=== PATIENT | male | born 1940 | race Caucasian/White ===

== ENCOUNTER 2021-03-25 09:25 | Emergency (ER) | payer MEDICARE ==
[~2021-03-25] VITALS: Ht 175.3 cm; Wt 76.8 kg
--- NOTE | 2021-03-25 09:56 | PHYS DOC ---
General Adult EDM: Chief Complaint: ANIMAL BITE HPI: HPI: Patient is a 80-year-old male coming in for swelling and purulent discharge to right hand. 1.5 days ago he was bitten by his dog. He states he dropped a wrapper and was going to pick it up as his dog was going for it at the same time, accidently biting his right hand. Dog's vaccination, including rabies, are up-to-date. Patient last tetanus greater than 10 years ago. Denies any fevers, chills, night sweats or any other systemic complaints. Patient with a history of stage IV melanoma and is currently undergoing chemotherapy treatment with Keytruda. Denies any pain at this time. Patient is right-handed. Review of Systems: Review of Systems: All other systems within normal limits except for as noted in the HPI Current Medications: Current Meds: Current Medications Medications (Trade) Dose Ordered Sig/Ayah Start Time Stop Time Status Last Admin Dose Admin Diphtheria/ Pertussis/Tetanus Vacc (ADACEL TDap SYRINGE) 0.5 ml ONCE ONCE 03/25/21 10:00 03/25/21 10:01 UNV Allergies: Allergies: Allergies Coded Allergies Type Severity Reaction Last Updated Verified No Known Drug Allergies 03/25/21 No Physical Exam: PE: Constitutional: Well developed, well nourished, no acute distress, non-toxic appearance. [] HENT: Normocephalic, atraumatic, bilateral external ears normal, nose normal. [] Eyes: PERRLA, conjunctiva normal, no discharge. [] Neck: No rigidity, supple, no stridor. [] Cardiovascular: Regular rate and rhythm, brisk cap refill [] Lungs & Thorax: Non labored symmetric respirations, no tachypnea or respiratory distress [] Abdomen: Soft, nondistended. Skin: Warm, dry, no erythema, no rash. [] Back: Unremarkable Extremities: No deformities, range of motion grossly intact, no lower extremity edema. Right hand exam: Diffuse swelling of hand and fingers, limited range of motion secondary to pain, 2 cm laceration to base of middle finger, multiple punctate lesions around base of second and third finger. [] Neurologic: Alert and oriented X 3, no focal deficits noted. [] Psychologic: Affect normal, judgement normal, mood normal. [] EKG: EKG: [] Radiology/Procedures: Radiology/Procedures: EXAM: Right hand, 3 views. HISTORY: Dog bite. COMPARISON: None. FINDINGS: 3 views of the right hand are obtained. There is a comminuted fracture involving the fourth proximal phalanx with overlying soft tissue gas due to a penetrating injury. No foreign body is seen. There is triscaphe and first carpometacarpal joint space narrowing, subchondral sclerosis and spurring. There is also first interphalangeal joint and second distal interphalangeal joint spurring. There is mild wrist chondrocalcinosis. There are vascular calcifications IMPRESSION: 1. Comminuted fracture of the fourth proximal phalanx with associated soft tissue laceration. No foreign body is seen. 2. 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 Risk Scores: Score 0 - 3: 2.5% MACE over next 6 weeks - Discharge Home Score 4 - 6: 20.3% MACE over next 6 weeks - Admit for Clinical Observation Score 7 - 10: 72.7% MACE over next 6 weeks - Early Invasive Strategies Course & Med Decision Making: Course & Med Decision Making Pertinent Labs and Imaging studies reviewed. (See chart for details) Blood cultures taken prior to antibiotics, treated with Zosyn. Consult to [facility] for hand consult due to open fracture and immune compromised patient, Dr. Mistry will accept patient for evaluation in emergency department.. Tetanus updated in the emergency department. Patient stable to transfer POV with . Left peripheral IV wrapped with Coban prior to departure. Patient instructed to check into the emergency department. [] Dragon Disclaimer: Samantha Disclaimer: This electronic medical record was generated, in whole or in part, using a voice recognition dictation system. Departure Departure: Impression: Primary Impression: Infection of right hand due to bite Disposition: 02 [facility]ORT TERM [facility] Condition: STABLE Referrals: PCP,NO (PCP) Additional Instructions: Go directly to [facility] emergency department, nothing to eat or drink until evaluated by hand surgeon. Check in at the [facility], they should be expecting you as a transfer patient. Address: [address] [place] [id number] FAITH GOLD MD March 25, 2021 09:56
--- NOTE | 2021-03-25 10:04 | RAD ---
EXAM: Right hand, 3 views. HISTORY: Dog bite. COMPARISON: None. FINDINGS: 3 views of the right hand are obtained. There is a comminuted fracture involving the fourth proximal phalanx with overlying soft tissue gas due to a penetrating injury. No foreign body is seen . There is triscaphe and first carpometacarpal joint space narrowing, subchondral sclerosis and spurr ing. There is also first interphalangeal joint and second distal interphalangeal joint spurring. Ther e is mild wrist chondrocalcinosis. There are vascular calcifications IMPRESSION: 1. Comminuted fracture of the fourth proximal phalanx with associated soft tissue laceration. No fore ign body is seen. 2. 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 Electronically signed by: Magdalena Lyons MD (03/25/2021 10:02 AM) [facility]
[2021-03-25] MEDS ORDERED: PIPERACILLIN/TAZOBACTAM 3.375 GM VIAL IV ONE (10:25)
[2021-03-25] MEDS ORDERED: IV NORMAL SALINE 50ML 50 ML ONE (10:25)
[2021-03-25] MEDS: DIPH,PERTUSS(ACELL),TET VAC/PF 0.5 ML SYRINGE. VAX IM ONE (10:28)
[2021-03-25] MEDS: PIPERACILLIN/TAZOBACTAM 3.375 GM in IV NORMAL SALINE 50ML 50 ML IV ONE (10:28)
[2021-03-25 10:34] LABS: BASO % 0 % (0-3); EOS # 0.1 x10^3/uL (0.0-0.7); EOS % 1 % (0-3); HEMATOCRIT 39.5 % (39.0-53.0); HEMOGLOBIN 12.9 g/dL (13.0-17.5); LYMPH # 2.4 x10^3/uL (1.0-4.8); LYMPH % 16 % (24-48); MEAN CORPUSCULAR HEMOGLOBIN 28 pg (25-35); MEAN CORPUSCULAR HGB CONC 33 g/dL (31-37); MEAN CORPUSCULAR VOLUME 85 fL (79-100); MONO # 1.6 x10^3/uL (0.0-1.1); MONO % 11 % (0-9); NEUT # 10.7 x10^3uL (1.8-7.7); NEUT % 72 % (31-73); PLATELET COUNT 309 x10^3/uL (140-400); RED BLOOD COUNT 4.64 x10^6/uL (4.30-5.70); RED CELL DISTRIBUTION WIDTH 17.8 % (11.5-14.5); WHITE BLOOD COUNT 14.8 x10^3/uL (4.0-11.0)
[2021-03-25 10:40] LABS: CALCIUM 8.8 mg/dL (8.5-10.1); CREATININE 0.8 mg/dL (0.7-1.3); GFR 93.5; POTASSIUM 3.5 mmol/L (3.5-5.1)
[2021-03-25 10:45] LABS: ALBUMIN/GLOBULIN RATIO 0.8 (1.0-1.7); C REACTIVE PROTEIN 80.6 mg/L (0-3.3); TOTAL BILIRUBIN 0.6 mg/dL (0.2-1.0); TOTAL PROTEIN 6.9 g/dL (6.4-8.2)
[2021-03-25 10:54] VITALS: BP 152/77
[2021-03-25 11:41] LABS: SEDIMENTATION RATE 30 (0-15)
== END 2021-03-25 12:29 | disposition short-term general hospital (02) ==
LOC: ER 09:25
DX: S61.212A Laceration without foreign body of right middle finger without damage to nail, initial encounter (principal); L08.9 Local infection of the skin and subcutaneous tissue, unspecified; W54.0XXA Bitten by dog, initial encounter; Y93.89 Activity, other specified; Y92.89 Other specified places as the place of occurrence of the external cause; Y99.8 Other external cause status
CPT/HCPCS: 36415; 73130; 80053; 85025; 85651; 86140; 87040; 87070; 90471; 90715; 96365; 99285; J2543